=== PATIENT | male | born 1955 | race Two or more races ===

== ENCOUNTER 2018-08-17 13:25 | Emergency (ER) | payer MEDICAID, OTHER ==
[~2018-08-17] VITALS: Ht 167.6 cm; Wt 83.9 kg
[2018-08-17 14:10] VITALS: BP 118/74
[2018-08-17] MEDS ORDERED: Albuterol/Ipratropium 3ml neb HHN ONE (14:30)
[2018-08-17] MEDS ORDERED: Benzonatate 100mg Perles ORAL ONE (14:30)
--- NOTE | 2018-08-17 14:43 | Emergency Room Report ---
History of Present Illness General Chief Complaint: Upper Respiratory Illness Source: Patient Present Illness HPI 63-year-old male patient presents ER brought in by a months complaining of cough and congestion for the past month. Reports cough with green-yellow sputum. Denies hemoptysis. Denies recent travel. Denies fever, chest pain, shortness of breath. Reports history of asthma. reports was using inhaler with mild relief of symptoms, states also uses Advair provided to him by a friend which helped symptoms. Reports generalized muscle pain. denies calf pain. Denies fever. Denies abdominal pain. Denies vomiting or diarrhea. denies history of heart disease. Denies history of heart attack or stroke. patient reports history of panic attacks. Denies panic attack currently. Denies suicidal or homicidal ideation. Patient wants no in refill of his medication, states he was previously prescribed Xanax. Reports history of smoking cigarettes. States quit smoking 3 years ago. denies hx COPD. Denies calf pain. Denies neck pain or night chills. Reports history of diabetes, states medication, states well-controlled. Denies marijuana or drug use. Allergies: Coded Allergies: No Known Allergies (Unverified , 08/17/18) Patient History Past Medical History: see triage record Reviewed Nursing Documentation: PMH: Agreed; PSxH: Agreed Nursing Documentation-PMH Past Medical History: No History, Except For Hx Asthma: Yes Hx Diabetes: Yes Review of Systems All Other Systems: negative except mentioned in HPI Physical Exam Vital Signs Date Time Temp Pulse Resp B/P (MAP) Pulse Ox O2 Delivery O2 Flow Rate FiO2 08/17/18 13:21 98.1 80 18 115/80 98 Room Air Sp02 EP Interpretation: reviewed, normal General Appearance: well appearing, no apparent distress, alert, GCS 15, non- toxic Head: normocephalic, atraumatic Eyes: bilateral eye normal inspection, bilateral eye PERRL ENT: hearing grossly normal, normal pharynx, no angioedema, normal voice, TMs + canals normal, uvula midline, moist mucus membranes, nasal congestion Neck: full range of motion Respiratory: lungs clear, no rhonchi, no respiratory distress, no accessory muscle use, no wheezing, decreased breath sounds - minimal, speaking full sentences, other - no stridor Cardiovascular #2: 2+ radial (R), 2+ radial (L) Gastrointestinal: non tender, soft, no mass, non-distended, no guarding, no rebound Musculoskeletal: back normal, digits/nails normal, gait/station normal, normal range of motion, non-tender, no calf tenderness, Kan's Sign negative Neurologic: alert, oriented x3, responsive, motor strength/tone normal, sensory intact Psychiatric: mood/affect normal, no suicidal/homicidal ideation Skin: no rash Medical Decision Making PA Attestation Dr. Mcgrath is my supervising Physician whom patient management has been discussed with. Diagnostic Impression: Primary Impression: Asthma exacerbation Additional Impression: Upper respiratory infection ER Course Pt presents to ED c/o cough, congestion. DDX considered but are not limited to asthma, viral URI, influenza, bronchitis, pneumonia, CHF, anxiety. denies chest pain, shortness of breath, denies history of heart attack, low suspicion for cardiac etiology of symptoms, does not require a cardiac workup at this time. VITAL SIGNS are WNL, patient is afebrile. Ordered breathing treatment and medication. ER COURSE Patient provided with prednisone and cough medication. Duoneb breathing treatment provided. Following treatment patient states no longer having difficulty with breathing. Patient is resting comfortably in no acute distress. CXR negative for acute disease, no crackles on auscultation, no consolidation consistent with PNA, does not require abx at this time. ER precautions given. informed patient would not provide refill of his medications. Follow-up with primary care provider or mental health urgent care. Provided with contact information for mental health urgent care. Do not believe patient is a danger to himself or others at this time. Patient OK for outpatient followup and referral. ER precautions given. DISCHARGE: -Rx given for Prednisone. -Rx provided for Albuterol MDI. -Rx provided for Tessalon Perles -RX provided for Fluticasone -Rx provided for Sudafed At this time pt is stable for d/c to home. Patient is resting comfortably in no acute distress, nontoxic appearing, able to answer questions without difficulty. Patient to take medications as instructed Will provide with patient care instructions and any necessary prescriptions. Care plan and follow-up instructions provided. Patient instructed to follow-up with primary care provider in 3 - 5 days. Patient questions asked and answered. Patient reports understanding and agreement to treatment plan. ER precautions given. Patient instructed to return to ER immediately for any new or worsening of symptoms including but not limited to increasing SOB, persistent fever. - Please note that this Emergency Department Report was dictated using [employer] technology software, occasionally this can lead to erroneous entry secondary to interpretation by the dictation equipment. Chest X-Ray Diagnostic Results Chest X-Ray Diagnostic Results : Chest X-Ray Ordered: Yes # of Views/Limited/Complete: 1 View Indication: Chest Pain EP Interpretation: Yes PA Xray: Interpretation reviewed, by supervising MD, and agrees with findings. Interpretation: no consolidation, no effusion, no pneumothorax, no acute cardiopulmonary disease Impression: No acute disease RENETTA ScribMaddi Page PA-C Last Vital Signs Date Time Temp Pulse Resp B/P (MAP) Pulse Ox O2 Delivery O2 Flow Rate FiO2 08/17/18 14:10 78 20 Room Air 08/17/18 14:10 98.4 118/74 99 Status: improved Disposition: HOME, SELF-CARE Condition: Stable Scripts D-Methorphan/PE/Acetaminophen (Sudafed PE Pressure+Pain+Cough) 1 Each Tablet 1 EACH PO BID, #24 TAB Prov: Everton Page 08/17/18 Fluticasone Propionate* (FLUTICASONE PROPIONATE*) 16 Gm [place].susp 2 SPRAY NASAL DAILY, #16 GM Prov: Everton Page 08/17/18 Prednisone* (PREDNISONE*) 20 Mg Tablet 40 MG ORAL DAILY for 4 Days, #8 TAB Prov: Everton Page 08/17/18 Albuterol Sulfate* (ALBUTEROL SULFATE MDI*) 8.5 Gm Hfa.aer.ad 2 PUFF INH Q6H, #1 INH 0 Refills Prov: Everton Page 08/17/18 Benzonatate* (TESSALON PERLE*) 100 Mg Capsule 100 MG ORAL THREE TIMES A DAY for 20 Days, PERLE Prov: Everton Page 08/17/18 Patient Instructions: Asthma Attack Prevention, Asthma, Acute Bronchospasm, Upper Respiratory Infection, Adult Additional Instructions: Followup with primary care provider in 3 -5 days. Discuss asthma medication and treatment. Discuss medication for panic attacks. Discuss referral to mental health professional. Take medications as directed. Drink plenty of fluids. Patient questions asked and answered. ER precautions given, patient instructed to return to ER immediately for any new or worsening of symptoms. Everton Page Aug 17, 2018 14:43
[2018-08-17] MEDS ORDERED: FLUTICASONE PRO16 G1 NASAL (15:23)
[2018-08-17] MEDS ORDERED: SUDAFED PE PRE1 EACH PO (15:23)
[2018-08-17] MEDS ORDERED: TESSALON PERLE100 MG ORAL (15:23)
[2018-08-17] MEDS ORDERED: ALBUTEROL SULF8.5 GM INH (15:23)
[2018-08-17] MEDS ORDERED: PREDNISONE20 MG ORAL (15:23)
[2018-08-17 15:27] VITALS: BP_SYST 117; BP_SYST 118; BP_DIAS 74; BP_DIAS 79
--- NOTE | 2018-08-18 13:28 | Diagnostic Imaging Report ---
Indication: Cough Technique: One view of the chest Comparison: Findings: Lungs and pleural spaces are clear. Heart size is normal Impression: No acute process
== END 2018-08-17 16:18 | disposition home or self-care (01) ==
LOC: EDBD 13:25 → EMR 15:49
DX: J45.901 Unspecified asthma with (acute) exacerbation (principal); J06.9 Acute upper respiratory infection, unspecified; R07.9 Chest pain, unspecified; E11.9 Type 2 diabetes mellitus without complications; Z79.84 Long term (current) use of oral hypoglycemic drugs; Z87.891 Personal history of nicotine dependence
CPT/HCPCS: 71045; 94640; 99284; J7512; J7620